=== PATIENT | male | born 1940 | race Caucasian/White ===

== ENCOUNTER 2021-11-04 19:18 | Inpatient (IN) | payer MEDICARE ==
[~2021-11-04] VITALS: Ht 185.4 cm; Wt 63.5 kg
[2021-11-04 22:06] VITALS: BP 142/40
[2021-11-05] VITALS (9 sets, daily range): BP systolic 104–145; BP diastolic 36–50
[2021-11-05] MEDS ORDERED: ALBUTEROL SULFA10 GM INH (00:11)
[2021-11-05] MEDS ORDERED: LATANOPROST2.5 ML OU (00:11)
[2021-11-05] MEDS ORDERED: NIFEDIPINE ER60 M1 PO (00:11)
[2021-11-05] MEDS ORDERED: TRELEGY ELLIPT1 EACH INH (00:11)
[2021-11-05] MEDS ORDERED: IMURAN50 MG PO (00:11)
[2021-11-05] MEDS ORDERED: CARVEDILOL6.25 MG PO (00:11)
[2021-11-05] MEDS ORDERED: ROSUVASTATIN CA10 MG PO (00:11)
[2021-11-05] MEDS: SODIUM BICARBONATE 8.4% SYRING 150 ML in DEXTROSE 5% 1,000 ML IV SCH ×2 (00:37→14:24)
[2021-11-05] MEDS ORDERED: FUROSEMIDE40 MG PO (01:42)
[2021-11-05] MEDS ORDERED: FLUTICASONE PRO16 GM (01:42)
[2021-11-05 06:57] LABS: BASOPHILS % 0.2 % (0.0-1.0); EOSINOPHILS # (AUTO) 0.1 (0.0-0.4); EOSINOPHILS % 0.3 % (0.0-6.0); HEMATOCRIT 32.2 % (38.2-49.6); HEMOGLOBIN 10.3 g/dL (14.0-18.0); LYMPHOCYTES # (AUTO) 0.9 (1.0-3.2); LYMPHOCYTES % 4.6 % (18.0-39.1); MEAN CORPUSCULAR HEMOGLOBIN 31.2 pg (28-32); MEAN CORPUSCULAR VOLUME 97.6 fL (81-99); MONOCYTES # (AUTO) 0.7 (0.2-0.8); MONOCYTES % 3.8 % (4.4-11.3); NEUTROPHILS # (AUTO) 16.9 (2.1-6.9); NEUTROPHILS % 90.5 % (38.7-80.0); PLATELET COUNT 522 x10e3/uL (140-360); RED CELL DISTRIBUTION WIDTH 13.3 % (11.7-14.4)
[2021-11-05 07:03] LABS: RETICULOCYTE % 1.3 % (0.8-2.2)
[2021-11-05 07:09] LABS: INR 1.1; PROTHROMBIN TIME 15.2 seconds (11.9-14.5)
[2021-11-05 07:35] LABS: % IRON SATURATION 15 % (15-50); IRON 26 ug/dL (65-175); TOTAL IRON BINDING CAPACITY 176 ug/dL (261-478); TRANSFERRIN 126 mg/dL (174-364)
[2021-11-05 07:38] LABS: ALBUMIN/GLOBULIN RATIO 0.5 (0.8-2.0); ANION GAP 25.6 mmol/L (8-16); CALCIUM 7.8 mg/dL (8.4-10.2); CREATININE, SERUM 9.06 mg/dL (0.72-1.25); POTASSIUM 5.6 mmol/L (3.5-5.1)
[2021-11-05] MEDS: VANCOMYCIN HCL 125 MG CAPSULE PO SCH ×2 (11:30→17:46)
[2021-11-05] MEDS ORDERED: SODIUM CHLORIDE 0.9% 1000ML 1,000 ML IV ONE (11:45)
[2021-11-05] MEDS ORDERED: SOD POLYSTYRENE SULFONATE SUSP 15 GM/60 ML BTL PO ONE (12:00)
[2021-11-05] MEDS ORDERED: ALBUTEROL SULFATE HFA 8GM INHALATION AEROSOL INH PRN (12:30)
[2021-11-05 15:22] LABS: FREE THYROXINE INDEX 1.3367 (1.4-3.8)
[2021-11-05] MEDS: SIMVASTATIN 40 MG TAB PO SCH (20:21)
[2021-11-06] VITALS (7 sets, daily range): BP systolic 128–141; BP diastolic 44–58
[2021-11-06] MEDS: SODIUM BICARBONATE 8.4% SYRING 150 ML in DEXTROSE 5% 1,000 ML IV SCH ×3 (00:30→21:39)
[2021-11-06] MEDS: VANCOMYCIN HCL 125 MG CAPSULE PO SCH ×4 (00:38→23:23)
[2021-11-06] MEDS ORDERED: DICYCLOMINE HCL 20 MG TAB PO ONE (03:30)
[2021-11-06] MEDS: Fluticasone/Umeclidin/Vilanter (Trelegy Ellipta 100-62.5-25) INH SCH (06:00)
[2021-11-06] MEDS ORDERED: VANCOMYCIN 250MG/5ML ORAL SOLN PO SCH (06:00)
[2021-11-06 06:15] LABS: BASOPHILS # (AUTO) 0.1 (0.0-0.1); BASOPHILS % 0.4 % (0.0-1.0); EOSINOPHILS # (AUTO) 0.1 (0.0-0.4); EOSINOPHILS % 0.6 % (0.0-6.0); HEMATOCRIT 31.8 % (38.2-49.6); HEMOGLOBIN 10.3 g/dL (14.0-18.0); LYMPHOCYTES # (AUTO) 0.6 (1.0-3.2); LYMPHOCYTES % 3.4 % (18.0-39.1); MEAN CORPUSCULAR HEMOGLOBIN 31.8 pg (28-32); MEAN CORPUSCULAR HGB CONC 32.4 g/dL (31-35); MEAN CORPUSCULAR VOLUME 98.1 fL (81-99); MONOCYTES # (AUTO) 0.9 (0.2-0.8); MONOCYTES % 4.6 % (4.4-11.3); NEUTROPHILS # (AUTO) 16.8 (2.1-6.9); NEUTROPHILS % 90.2 % (38.7-80.0); RED BLOOD COUNT 3.24 x10e6/uL (4.3-5.7); RED CELL DISTRIBUTION WIDTH 13.4 % (11.7-14.4)
[2021-11-06 06:30] LABS: PLATELET COUNT 407 x10e3/uL (140-360)
[2021-11-06 06:51] LABS: ALBUMIN 1.9 g/dL (3.5-5.0); ALBUMIN/GLOBULIN RATIO 0.5 (0.8-2.0); ANION GAP 23.2 mmol/L (8-16); CALCIUM 7.1 mg/dL (8.4-10.2); CREATININE, SERUM 8.57 mg/dL (0.72-1.25); POTASSIUM 4.2 mmol/L (3.5-5.1)
[2021-11-06 08:47] LABS: BAND NEUTROPHILS % (MANUAL) 2 %; EOSINOPHILS % (MANUAL) 1 % (0-7); LYMPHOCYTES % (MANUAL) 6 % (19-48); MONOCYTES % (MANUAL) 3 % (3.4-9.0); NEUTROPHILS % (MANUAL) 88 % (40-74); PLATELET ESTIMATE ADEQUATE; PLATELET MORPHOLOGY COMMENT NORMAL; RBC MORPHOLOGY COMMENT NORMAL
[2021-11-06] MEDS ORDERED: LATANOPROST(OPTH) 2.5 ML BTL OU SCH (09:00)
[2021-11-06] MEDS: IRON SUCROSE 100 MG in SODIUM CHLORIDE 0.9% 100 ML IV SCH (09:18)
[2021-11-06] MEDS: DICYCLOMINE HCL 20 MG TAB PO SCH ×4 (09:20→21:23)
[2021-11-06] MEDS: CARVEDILOL 3.125 MG TAB PO SCH (09:21)
[2021-11-06] MEDS: AZATHIOPRINE 50 MG TAB PO SCH (09:22)
[2021-11-06] MEDS: NIFEDIPINE CR 30 MG TAB PO SCH (09:26)
[2021-11-06] MEDS: FLUTICASONE PROPIONATE NASAL SPRAY NS SCH (09:26)
[2021-11-06] MEDS: CITRIC ACID/SODIUM CITRATE 30 ML UDC PO SCH ×2 (15:28→21:23)
[2021-11-06] MEDS: LATANOPROST(OPTH) 2.5 ML BTL OU SCH (21:23)
[2021-11-06] MEDS: SIMVASTATIN 40 MG TAB PO SCH (21:23)
[2021-11-06] MEDS ORDERED: DEXTROSE 5% 0 ML IV ONE (21:25)
[2021-11-06] MEDS ORDERED: DIPHENOXYLATE/ATROPINE TAB PO ONE (23:15)
[2021-11-07] VITALS (7 sets, daily range): BP systolic 109–138; BP diastolic 53–71
[2021-11-07] MEDS ORDERED: DIPHENOXYLATE/ATROPINE TAB PO ONE (01:00)
[2021-11-07] MEDS ORDERED: METRONIDAZOLE 500MG/NS 100ML 100 ML IV STA (01:10)
[2021-11-07] MEDS ORDERED: MINERAL OIL/PETROLAT/GLYCERI 6OZ BTL TOP PRN (01:15)
[2021-11-07 05:55] LABS: BASOPHILS # (AUTO) 0.1 (0.0-0.1); BASOPHILS % 0.4 % (0.0-1.0); EOSINOPHILS # (AUTO) 0.2 (0.0-0.4); EOSINOPHILS % 1.1 % (0.0-6.0); HEMATOCRIT 27.7 % (38.2-49.6); HEMOGLOBIN 9.4 g/dL (14.0-18.0); LYMPHOCYTES % 5.8 % (18.0-39.1); MEAN CORPUSCULAR HEMOGLOBIN 31.4 pg (28-32); MEAN CORPUSCULAR HGB CONC 33.9 g/dL (31-35); MEAN CORPUSCULAR VOLUME 92.6 fL (81-99); MONOCYTES # (AUTO) 0.7 (0.2-0.8); NEUTROPHILS # (AUTO) 15.6 (2.1-6.9); NEUTROPHILS % 87.9 % (38.7-80.0); PLATELET COUNT 391 x10e3/uL (140-360); RED BLOOD COUNT 2.99 x10e6/uL (4.3-5.7); RED CELL DISTRIBUTION WIDTH 13.2 % (11.7-14.4)
[2021-11-07] MEDS ORDERED: METRONIDAZOLE 500MG/NS 100ML 100 ML IV SCH (06:00)
[2021-11-07] MEDS: Fluticasone/Umeclidin/Vilanter (Trelegy Ellipta 100-62.5-25) INH SCH (06:00)
[2021-11-07] MEDS: VANCOMYCIN HCL 125 MG CAPSULE PO SCH ×3 (06:15→17:21)
[2021-11-07 06:44] LABS: ALBUMIN 1.8 g/dL (3.5-5.0); ALBUMIN/GLOBULIN RATIO 0.5 (0.8-2.0); CREATININE, SERUM 8.07 mg/dL (0.72-1.25)
[2021-11-07 06:52] LABS: CALCIUM 6.7 mg/dL (8.4-10.2)
[2021-11-07] MEDS: FLUTICASONE PROPIONATE NASAL SPRAY NS SCH (08:53)
[2021-11-07] MEDS: AZATHIOPRINE 50 MG TAB PO SCH (08:59)
[2021-11-07] MEDS: DICYCLOMINE HCL 20 MG TAB PO SCH ×4 (08:59→21:08)
[2021-11-07] MEDS: CARVEDILOL 3.125 MG TAB PO SCH (08:59)
[2021-11-07] MEDS: CITRIC ACID/SODIUM CITRATE 30 ML UDC PO SCH (08:59)
[2021-11-07] MEDS: NIFEDIPINE CR 30 MG TAB PO SCH (09:00)
[2021-11-07] MEDS: IRON SUCROSE 100 MG in SODIUM CHLORIDE 0.9% 100 ML IV SCH (09:14)
[2021-11-07] MEDS ORDERED: SODIUM BICARBONATE 8.4% 150 ML in DEXTROSE 5% 1,000 ML IV SCH (10:00)
[2021-11-07] MEDS ORDERED: POTASSIUM CHLORIDE 20MEQ/100ML 200 ML IV ONE ×2 (12:00→15:00)
[2021-11-07] MEDS: DEXTROSE 5%/0.225% SOD CHL 1,000 ML IV SCH ×2 (12:15→21:10)
[2021-11-07] MEDS: CHOLESTYRAMINE 4 GM PACKET PO SCH (17:21)
[2021-11-07] MEDS: SIMVASTATIN 40 MG TAB PO SCH (21:08)
[2021-11-07] MEDS: LATANOPROST(OPTH) 2.5 ML BTL OU SCH (23:08)
[2021-11-08] VITALS (10 sets, daily range): BP systolic 112–132; BP diastolic 48–78
[2021-11-08] MEDS: VANCOMYCIN HCL 125 MG CAPSULE PO SCH ×5 (00:31→23:21)
[2021-11-08] MEDS ORDERED: CHOLESTYRAMINE 4 GM PACKET PO ONE (01:30)
[2021-11-08] MEDS ORDERED: DIPHENOXYLATE/ATROPINE TAB PO ONE (01:30)
[2021-11-08 05:53] LABS: BASOPHILS # (AUTO) 0.1 (0.0-0.1); BASOPHILS % 0.4 % (0.0-1.0); EOSINOPHILS # (AUTO) 0.3 (0.0-0.4); EOSINOPHILS % 1.4 % (0.0-6.0); HEMATOCRIT 30.5 % (38.2-49.6); LYMPHOCYTES # (AUTO) 0.9 (1.0-3.2); LYMPHOCYTES % 4.5 % (18.0-39.1); MEAN CORPUSCULAR HGB CONC 32.8 g/dL (31-35); MEAN CORPUSCULAR VOLUME 94.4 fL (81-99); MONOCYTES # (AUTO) 0.7 (0.2-0.8); MONOCYTES % 3.4 % (4.4-11.3); NEUTROPHILS # (AUTO) 18.3 (2.1-6.9); NEUTROPHILS % 89.4 % (38.7-80.0); PLATELET COUNT 416 x10e3/uL (140-360); RED BLOOD COUNT 3.23 x10e6/uL (4.3-5.7); RED CELL DISTRIBUTION WIDTH 12.9 % (11.7-14.4)
[2021-11-08] MEDS: Fluticasone/Umeclidin/Vilanter (Trelegy Ellipta 100-62.5-25) INH SCH (06:00)
[2021-11-08] MEDS: DEXTROSE 5%/0.225% SOD CHL 1,000 ML IV SCH ×3 (06:11→20:23)
[2021-11-08 06:13] LABS: ALBUMIN 1.8 g/dL (3.5-5.0); ALBUMIN/GLOBULIN RATIO 0.5 (0.8-2.0); ANION GAP 20.1 mmol/L (8-16); CREATININE, SERUM 7.62 mg/dL (0.72-1.25); POTASSIUM 3.1 mmol/L (3.5-5.1)
[2021-11-08 06:17] LABS: CALCIUM 6.4 mg/dL (8.4-10.2)
[2021-11-08] MEDS ORDERED: POTASSIUM CHLORIDE 20 MEQ TAB CR PO STA (06:43)
[2021-11-08 07:45] LABS: BAND NEUTROPHILS % (MANUAL) 2 %; LYMPHOCYTES % (MANUAL) 5 % (19-48); MONOCYTES % (MANUAL) 3 % (3.4-9.0); NEUTROPHILS % (MANUAL) 89 % (40-74); PLATELET ESTIMATE ADEQUATE; PLATELET MORPHOLOGY COMMENT FEW LARGE; RBC MORPHOLOGY COMMENT NORMAL
[2021-11-08] MEDS: IRON SUCROSE 100 MG in SODIUM CHLORIDE 0.9% 100 ML IV SCH (08:57)
[2021-11-08] MEDS: CHOLESTYRAMINE 4 GM PACKET PO SCH ×2 (08:58→18:00)
[2021-11-08] MEDS: NIFEDIPINE CR 30 MG TAB PO SCH (08:59)
[2021-11-08] MEDS: AZATHIOPRINE 50 MG TAB PO SCH (09:00)
[2021-11-08] MEDS: FLUTICASONE PROPIONATE NASAL SPRAY NS SCH (09:00)
[2021-11-08] MEDS ORDERED: POTASSIUM CHLORIDE 20 MEQ TAB CR PO SCH (09:00)
[2021-11-08] MEDS: DIPHENOXYLATE/ATROPINE TAB PO SCH ×2 (09:00→16:28)
[2021-11-08] MEDS: DICYCLOMINE HCL 20 MG TAB PO SCH ×4 (09:00→20:54)
[2021-11-08] MEDS: CARVEDILOL 3.125 MG TAB PO SCH (09:00)
[2021-11-08] MEDS ORDERED: ONDANSETRON HCL INJ 2MG/ML 2ML 2 MG/ML VIAL IV PRN (10:30)
[2021-11-08] MEDS ORDERED: OYST-CAL-D 500MG TABLET PO SCH (10:30)
[2021-11-08] MEDS ORDERED: POTASSIUM CHLORIDE 20MEQ/100ML 200 ML IV ONE (12:00)
[2021-11-08] MEDS ORDERED: LOPERAMIDE HCL 2 MG CAP PO ONE (12:30)
[2021-11-08] MEDS: OYST-CAL-D 500MG TABLET PO SCH ×2 (13:02→16:28)
[2021-11-08] MEDS: SIMVASTATIN 40 MG TAB PO SCH (20:54)
[2021-11-08] MEDS: LATANOPROST(OPTH) 2.5 ML BTL OU SCH (20:54)
[2021-11-09] VITALS (8 sets, daily range): BP systolic 102–154; BP diastolic 51–81
[2021-11-09] MEDS ORDERED: LACTOBACILLUS ACIDOPHILUS CAPSULE PO STA (02:23)
[2021-11-09] MEDS ORDERED: CHOLESTYRAMINE 4 GM PACKET PO SCH (02:30)
[2021-11-09] MEDS: DIPHENOXYLATE/ATROPINE TAB PO SCH ×5 (03:11→23:34)
[2021-11-09] MEDS: DEXTROSE 5%/0.225% SOD CHL 1,000 ML IV SCH (03:11)
[2021-11-09] MEDS: CHOLESTYRAMINE 4 GM PACKET PO SCH ×3 (03:11→19:00)
[2021-11-09] MEDS: VANCOMYCIN HCL 125 MG CAPSULE PO SCH ×4 (05:40→23:34)
[2021-11-09] MEDS: Fluticasone/Umeclidin/Vilanter (Trelegy Ellipta 100-62.5-25) INH SCH (06:00)
[2021-11-09 06:26] LABS: BASOPHILS # (AUTO) 0.1 (0.0-0.1); BASOPHILS % 0.4 % (0.0-1.0); EOSINOPHILS # (AUTO) 0.4 (0.0-0.4); EOSINOPHILS % 1.9 % (0.0-6.0); HEMOGLOBIN 9.6 g/dL (14.0-18.0); LYMPHOCYTES # (AUTO) 0.9 (1.0-3.2); LYMPHOCYTES % 4.6 % (18.0-39.1); MEAN CORPUSCULAR HEMOGLOBIN 31.7 pg (28-32); MEAN CORPUSCULAR HGB CONC 33.1 g/dL (31-35); MEAN CORPUSCULAR VOLUME 95.7 fL (81-99); MONOCYTES # (AUTO) 0.7 (0.2-0.8); MONOCYTES % 3.4 % (4.4-11.3); NEUTROPHILS # (AUTO) 17.1 (2.1-6.9); NEUTROPHILS % 88.8 % (38.7-80.0); PLATELET COUNT 409 x10e3/uL (140-360); RED BLOOD COUNT 3.03 x10e6/uL (4.3-5.7); RED CELL DISTRIBUTION WIDTH 12.8 % (11.7-14.4)
[2021-11-09 06:50] LABS: ALBUMIN 1.8 g/dL (3.5-5.0); ALBUMIN/GLOBULIN RATIO 0.5 (0.8-2.0); ANION GAP 17.3 mmol/L (8-16); CREATININE, SERUM 7.37 mg/dL (0.72-1.25)
[2021-11-09 06:59] LABS: POTASSIUM 4.3 mmol/L (3.5-5.1)
[2021-11-09 09:04] LABS: BAND NEUTROPHILS % (MANUAL) 3 %; EOSINOPHILS % (MANUAL) 3 % (0-7); LYMPHOCYTES % (MANUAL) 7 % (19-48); NEUTROPHILS % (MANUAL) 87 % (40-74)
[2021-11-09 09:05] LABS: PLATELET ESTIMATE ADEQUATE; PLATELET MORPHOLOGY COMMENT NORMAL; RBC MORPHOLOGY COMMENT NORMAL
[2021-11-09] MEDS: IRON SUCROSE 100 MG in SODIUM CHLORIDE 0.9% 100 ML IV SCH (09:27)
[2021-11-09] MEDS: NIFEDIPINE CR 30 MG TAB PO SCH (09:28)
[2021-11-09] MEDS: AZATHIOPRINE 50 MG TAB PO SCH (09:29)
[2021-11-09] MEDS: FLUTICASONE PROPIONATE NASAL SPRAY NS SCH (09:30)
[2021-11-09] MEDS: LACTOBACILLUS ACIDOPHILUS CAPSULE PO SCH ×3 (09:30→20:25)
[2021-11-09] MEDS: OYST-CAL-D 500MG TABLET PO SCH ×3 (09:30→17:00)
[2021-11-09] MEDS: CARVEDILOL 3.125 MG TAB PO SCH (09:30)
[2021-11-09] MEDS: DICYCLOMINE HCL 20 MG TAB PO SCH ×4 (09:30→20:25)
[2021-11-09] MEDS: ALBUMIN 25% 25GM 100ML 0.25 GM/ML BTL IV SCH ×3 (12:00→23:34)
[2021-11-09] MEDS: ALBUTEROL/IPRATROPIUM 3 ML NEB NEB SCH ×2 (12:30→18:46)
[2021-11-09] MEDS: LATANOPROST(OPTH) 2.5 ML BTL OU SCH (20:25)
[2021-11-09] MEDS: SIMVASTATIN 40 MG TAB PO SCH (20:25)
[2021-11-10] VITALS: BP 125/49
[2021-11-10] MEDS: ALBUTEROL/IPRATROPIUM 3 ML NEB NEB SCH ×2 (01:00→06:58)
[2021-11-10 04:00] VITALS: BP 119/44
[2021-11-10] MEDS: ALBUMIN 25% 25GM 100ML 0.25 GM/ML BTL IV SCH (05:21)
[2021-11-10] MEDS: VANCOMYCIN HCL 125 MG CAPSULE PO SCH (05:21)
[2021-11-10] MEDS: DIPHENOXYLATE/ATROPINE TAB PO SCH (05:21)
[2021-11-10 05:52] LABS: BASOPHILS % 0.3 % (0.0-1.0); EOSINOPHILS # (AUTO) 0.2 (0.0-0.4); EOSINOPHILS % 1.1 % (0.0-6.0); HEMATOCRIT 24.4 % (38.2-49.6); HEMOGLOBIN 7.8 g/dL (14.0-18.0); LYMPHOCYTES # (AUTO) 0.8 (1.0-3.2); LYMPHOCYTES % 4.9 % (18.0-39.1); MEAN CORPUSCULAR HEMOGLOBIN 31.5 pg (28-32); MEAN CORPUSCULAR VOLUME 98.4 fL (81-99); MONOCYTES # (AUTO) 0.6 (0.2-0.8); MONOCYTES % 3.5 % (4.4-11.3); NEUTROPHILS # (AUTO) 14.1 (2.1-6.9); NEUTROPHILS % 89.7 % (38.7-80.0); PLATELET COUNT 303 x10e3/uL (140-360); RED BLOOD COUNT 2.48 x10e6/uL (4.3-5.7); RED CELL DISTRIBUTION WIDTH 12.4 % (11.7-14.4)
[2021-11-10] MEDS: Fluticasone/Umeclidin/Vilanter (Trelegy Ellipta 100-62.5-25) INH SCH (06:00)
[2021-11-10 06:17] LABS: ALBUMIN 3.6 g/dL (3.5-5.0); ALBUMIN/GLOBULIN RATIO 1.5 (0.8-2.0); ANION GAP 21.2 mmol/L (8-16); CALCIUM 7.7 mg/dL (8.4-10.2); CREATININE, SERUM 7.72 mg/dL (0.72-1.25); POTASSIUM 4.2 mmol/L (3.5-5.1)
[2021-11-10 08:09] VITALS: BP 117/51
[2021-11-10 08:15] VITALS: BP 117/51
[2021-11-10 11:53] VITALS: BP 120/50
== END 2021-11-10 12:55 | disposition home or self-care (01) | DRG 371 ==
LOC: MED/SURG3 21:58
DX: A04.72 Enterocolitis due to Clostridium difficile, not specified as recurrent (principal); E43 Unspecified severe protein-calorie malnutrition; I50.33 Acute on chronic diastolic (congestive) heart failure; N18.6 End stage renal disease; K51.90 Ulcerative colitis, unspecified, without complications; I13.2 Hypertensive heart and chronic kidney disease with heart failure and with stage 5 chronic kidney disease, or end stage renal disease; I50.32 Chronic diastolic (congestive) heart failure; Z68.1 Body mass index [BMI] 19.9 or less, adult; N17.9 Acute kidney failure, unspecified; E11.22 Type 2 diabetes mellitus with diabetic chronic kidney disease; Z99.2 Dependence on renal dialysis; E83.51 Hypocalcemia; E87.6 Hypokalemia; D63.1 Anemia in chronic kidney disease; Z85.51 Personal history of malignant neoplasm of bladder; E86.0 Dehydration; J44.9 Chronic obstructive pulmonary disease, unspecified; D50.9 Iron deficiency anemia, unspecified; Z87.891 Personal history of nicotine dependence
CPT/HCPCS: 36415; 71045; 76770; 80053; 82607; 82746; 83540; 83993; 84100; 84436; 84443; 84466; 84479; 85025; 85045; 85610; 85651; 86140; 87045; 87177; 87324; 87449; 94640; 94799; 96361; J1756; J2405; J3480; J7030; J7050; J7070; P9047